=== PATIENT | female | born 2005 | race Two or more races ===

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

== ENCOUNTER 2025-02-22 00:18 | Inpatient (IN) | payer MEDICAID, OTHER ==
[2025-02-22] VITALS (10 sets, daily range): BP systolic 103–111; BP diastolic 64–80; PULSE 64–90; RESP 16–17; TEMP 97–98.4; O2SAT 96–99
[~2025-02-22] VITALS: Ht 157.5 cm; Wt 47.7 kg
[~2025-02-22 00:18] MED LIST: LITH300C3 PO
[2025-02-22] MEDS: LORazepam 2 MG/ML VIAL IM ONE (01:05)
[2025-02-22] MEDS ORDERED: ZOLPIDEM TARTRATE 10 MG TABLET PO PRN (01:45)
[2025-02-22 01:47] LABS: COVID AG,FIA SOURCE NASAL SWAB
[2025-02-22 02:07] LABS: SARS-COV2 (COVID) ANTIGEN,FIA Negative (Negative)
[2025-02-22 02:46] LABS: CALCIUM, TOTAL 8.2 mg/dL (8.8-10.5); CREATININE 0.70 mg/dL (0.60-1.30); GLOMERULAR FILTR. RATE CALC > 60 mL/min (>60); GLUCOSE,RANDOM 83 mg/dL (70-110); SODIUM SERUM 143 mmol/L (136-145); UREA NITROGEN, BLOOD 6 mg/dL (7-18)
[2025-02-22 02:52] LABS: ASPARTATE AMINOTRANSFERASE 27.0 U/L (15-37); PLATELET COUNT (AUTO) 246 K/uL (150-450); RED BLOOD CELL COUNT(AUTO) 4.48 MIL/uL (4.00-5.20); RED CELL DISTRIBUTION WIDTH 13.5 % (11.5-14.5); TOTAL PROTEIN, SERUM 7.6 g/dL (6.4-8.2); WHITE BLOOD COUNT (AUTO) 5.3 K/uL (4.5-11.0)
[2025-02-22 02:56] LABS: ALCOHOL, BLOOD (SERUM) 217.0 mg/dL (0-10)
[2025-02-22] MEDS ORDERED: LOPERAMIDE HCL 2 MG CAPSULE PO PRN (18:00)
[2025-02-22] MEDS ORDERED: GuaiFENesin/D-METHORPHAN [SUGAR-FREE] 200-20MG/10 ML SYRUP UDCUP PO PRN (18:00)
[2025-02-22] MEDS ORDERED: LURASIDONE HCL 20 MG TABLET PO PRN (18:00)
[2025-02-22] MEDS: CYANOCOBALAMIN 1,000 MCG/ML VIAL IM ONE (19:31)
[2025-02-22] MEDS: MELATONIN 5 MG TABLET PO SCH (20:50)
[2025-02-22] MEDS: LITHIUM CARBONATE 300 MG CAPSULE PO SCH (20:50)
[2025-02-22] MEDS: LURASIDONE HCL 20 MG TABLET PO SCH (20:50)
[2025-02-22] MEDS: PRAZOSIN HCL 1 MG CAPSULE PO SCH (20:50)
[2025-02-23 01:00] VITALS: BP 109/79; PULSE 72; RESP 18; TEMP 97.1; O2SAT 99
[2025-02-23 05:08] VITALS: BP 110/72; PULSE 72; RESP 16; TEMP 97; O2SAT 100
[2025-02-23 09:03] VITALS: BP 111/79; PULSE 83; RESP 17; TEMP 97.4; O2SAT 98
[2025-02-23 09:04] LABS: CHOL/HDL RATIO 2.6 (3.9-5.7); LDL CHOL (CALC.) 80.0 mg/dL (0-130)
[2025-02-23] MEDS: NALTREXONE HCL 50 MG TABLET PO SCH (09:34)
[2025-02-23] MEDS: THIAMINE 100 MG TABLET PO SCH (09:35)
[2025-02-23] MEDS: TOPIRAMATE 25 MG TABLET PO SCH (09:35)
[2025-02-23] MEDS: MULTIVITAMINS WITH MINERALS, THERAPEUTIC TABLET PO SCH (09:35)
[2025-02-23] MEDS: FOLIC ACID 1 MG TABLET PO SCH (09:35)
[2025-02-23 20:20] VITALS: BP 104/75; PULSE 92; RESP 17; TEMP 98.2; O2SAT 100
[2025-02-23] MEDS: LURASIDONE HCL 40 MG TABLET PO SCH (20:37)
[2025-02-23 22:05] VITALS: BP 104/75; PULSE 92; RESP 17; TEMP 98.2; O2SAT 100
[2025-02-24 08:24] VITALS: BP 103/83; PULSE 78; RESP 17; TEMP 97.4; O2SAT 100
[2025-02-24 09:39] VITALS: BP 103/83; PULSE 78; RESP 17; TEMP 97.4; O2SAT 100
[2025-02-24] MEDS ORDERED: LURA40TA2 PO (15:14)
[2025-02-24] MEDS ORDERED: TOPI25 PO (15:14)
[2025-02-24] MEDS ORDERED: LITH300T PO (15:14)
[2025-02-24] MEDS ORDERED: LITH600C5 PO (15:14)
[2025-02-24] MEDS ORDERED: PRAZ1 PO (15:14)
[2025-02-24] MEDS ORDERED: FLUO-418 PO (15:14)
[2025-02-24] MEDS ORDERED: NALT50TA33 PO (15:14)
[2025-02-24] MEDS ORDERED: MELA5TAB40 PO (15:14)
[2025-02-24] MEDS ORDERED: LITHIUM CARBONATE 300 MG TABLET PO SCH (21:00)
== END 2025-02-24 16:20 | disposition home or self-care (01) | DRG 751 ==
LOC: EMS 01:24 → B3A 05:05
PROVIDERS: ADMIT Psychiatry & Neurology Psychiatry; ATTEND Psychiatry & Neurology Psychiatry
PROC: GZHZZZZ Group Psychotherapy (ICD-10-PCS; principal; 2025-02-22)
PROC: GZ58ZZZ Individual Psychotherapy, Cognitive-Behavioral (ICD-10-PCS; 2025-02-22)
PROC: GZ56ZZZ Individual Psychotherapy, Supportive (ICD-10-PCS; 2025-02-23)
DX: F33.2 Major depressive disorder, recurrent severe without psychotic features (principal); F10.10 Alcohol abuse, uncomplicated; Z20.822 Contact with and (suspected) exposure to COVID-19; Y90.7 Blood alcohol level of 200-239 mg/100 ml; F41.9 Anxiety disorder, unspecified; F43.10 Post-traumatic stress disorder, unspecified; Y04.0XXA Assault by unarmed brawl or fight, initial encounter; Z55.9 Problems related to education and literacy, unspecified; Z59.9 Problem related to housing and economic circumstances, unspecified; Z63.9 Problem related to primary support group, unspecified; Z65.3 Problems related to other legal circumstances; Z78.1 Physical restraint status; Z91.52 Personal history of nonsuicidal self-harm; Z81.4 Family history of other substance abuse and dependence
CPT/HCPCS: 80048; 80061; 80076; 80178; 83036; 84703; 85025; 99291; G0480; J1200; J1630; J2060; J3420